=== PATIENT | female | born 1945 | race Caucasian/White ===

== ENCOUNTER 2021-03-22 06:32 | Emergency (ER) | payer MEDICARE ==
[~2021-03-22] VITALS: Ht 154.9 cm; Wt 65.9 kg
[2021-03-22] MEDS ORDERED: ROSU40TA4 PO (06:54)
[2021-03-22] MEDS ORDERED: LISI20TA33 PO (06:54)
[2021-03-22] MEDS ORDERED: D31000TA2 PO (06:54)
[2021-03-22] MEDS ORDERED: PRED5TA PO (06:54)
[2021-03-22] MEDS ORDERED: PRED5PAK2 PO (06:54)
[2021-03-22] MEDS ORDERED: CALC600C3 PO (06:54)
[2021-03-22] MEDS ORDERED: ALEN70TA82 PO (06:54)
--- NOTE | 2021-03-22 09:42 | REP ---
INDICATION: L foot pain/swelling s/p fall. COMPARISON: None. TECHNIQUE: Four images of the left foot were obtained. FINDINGS: There are no fractures evident. 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 There is mild soft tissue swelling over the dorsum of the foot. There is a large plantar spur. There are vascular calcifications. IMPRESSION: 1. Soft tissue swelling without fractures evident. 2. 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 3. Plantar spur. 4. Vascular calcifications. <Electronically signed by Gordo Gates > 03/22/21 0999
--- NOTE | 2021-03-22 09:43 | REP ---
INDICATION: L foot/ankle pain/swelling s/p fall. COMPARISON: None. TECHNIQUE: Four views of the left ankle were obtained. FINDINGS: No evidence of fracture or soft tissue swelling. No significant arthropathy. There is a large plantar spur. There are vascular calcifications. IMPRESSION: 1. No evidence of acute injury. 2. Other findings as noted. <Electronically signed by Gordo Gates > 03/22/21 0953
[2021-03-22] MEDS ORDERED: physical therapy (12:58)
[2021-03-22] MEDS ORDERED: misc (12:58)
[2021-03-22] MEDS ORDERED: ROLLMIS8 XX (12:58)
[2021-03-22 13:46] VITALS: BP 166/79
== END 2021-03-22 16:09 | disposition home or self-care (01) ==
LOC: M ED 06:32
DX: S93.602A Unspecified sprain of left foot, initial encounter (principal); S93.402A Sprain of unspecified ligament of left ankle, initial encounter; M77.32 Calcaneal spur, left foot; M13.872 Other specified arthritis, left ankle and foot; I70.208 Unspecified atherosclerosis of native arteries of extremities, other extremity; W19.XXXA Unspecified fall, initial encounter; Y92.099 Unspecified place in other non-institutional residence as the place of occurrence of the external cause; Y93.01 Activity, walking, marching and hiking; Y99.9 Unspecified external cause status; I10 Essential (primary) hypertension; E78.5 Hyperlipidemia, unspecified; Z88.8 Allergy status to other drugs, medicaments and biological substances; Z91.02 Food additives allergy status